=== PATIENT | female | born 1975 | race Caucasian/White ===

== ENCOUNTER 2019-02-06 00:09 | Emergency (ER) | payer BC ==
[~2019-02-06] VITALS: Ht 157.5 cm; Wt 64.4 kg
[2019-02-06] MEDS ORDERED: PANTOPRAZOLE SOD DR 40 MG TAB (00:25)
[2019-02-06] MEDS ORDERED: FOLIC ACID TAB 1MG (00:25)
[2019-02-06] MEDS ORDERED: FLUOXETINE CAP 20MG (00:25)
[2019-02-06] MEDS ORDERED: METHOTREXATE 2.5 MG (00:25)
[2019-02-06] MEDS ORDERED: MESALAMINE 800 MG (00:25)
[2019-02-06] MEDS ORDERED: FOLIC ACID 1 MG TABLET (00:25)
[2019-02-06] MEDS ORDERED: PERMETHRIN 5% (00:25)
[2019-02-06] MEDS ORDERED: LORATADINE (00:25)
--- NOTE | 2019-02-06 01:05 | NUR ---
Pt provided urine sample, sent to lab.
--- NOTE | 2019-02-06 01:12 | NUR ---
Dr. Boone at bedside for MSE accompanied by female chapperone.
--- NOTE | 2019-02-06 01:58 | NUR ---
Patient discharged to home in stable conditon. Written and verbal after care instructions given. Patient verbalizes understanding of instructions.
[2019-02-06 01:59] VITALS: BP 142/89
== END 2019-02-06 02:00 | disposition home or self-care (01) ==
LOC: ER 00:16
DX: Z00.00 Encounter for general adult medical examination without abnormal findings (principal); N89.8 Other specified noninflammatory disorders of vagina; Z79.899 Other long term (current) drug therapy
CPT/HCPCS: 87210; A4663

== ENCOUNTER 2019-08-21 15:55 | Emergency (ER) | payer BC ==
[~2019-08-21] VITALS: Ht 157.5 cm; Wt 64.4 kg
[~2019-08-21 15:55] MED LIST: FLUOXETINE CAP 20MG; FOLIC ACID 1 MG TABLET; FOLIC ACID TAB 1MG; LORATADINE; MESALAMINE 800 MG; METHOTREXATE 2.5 MG; PANTOPRAZOLE SOD DR 40 MG TAB; PERMETHRIN 5%
--- NOTE | 2019-08-21 16:13 | NUR ---
PATIENT WAS MSE BY DR TALAVERA IN ROOM 01B. PATIENT A & O X4.
[2019-08-21 16:46] VITALS: BP 141/86
--- NOTE | 2019-08-21 16:46 | NUR ---
Patient discharged to home in stable conditon. Written and verbal after care instructions given. Patient verbalizes understanding of instructions.
== END 2019-08-21 16:50 | disposition home or self-care (01) ==
LOC: ER 15:56
DX: F41.8 Other specified anxiety disorders (principal); E03.9 Hypothyroidism, unspecified; Z79.899 Other long term (current) drug therapy
CPT/HCPCS: 93005; A4663

== ENCOUNTER 2019-10-15 22:43 | Emergency (ER) | payer BC ==
[~2019-10-15] VITALS: Ht 1597.7 cm; Wt 64.9 kg
[2019-10-15] MEDS ORDERED: LEVO75TA7 PO (22:51)
[2019-10-15 23:29] LABS: *BILIRUBIN,URIN NEGATIVE (NEGATIVE); *CLARITY,URINE CLEAR (CLEAR); *COLOR,URINE YELLOW (YELLOW); *KETONES,URINE TRACE (NEGATIVE); *UROBILINOGEN,URINE 0.2 E.U./dl (NORMAL); LEUKOCYTE ESTERASE ,URINE NEGATIVE (NEGATIVE); NITRITE, URINE NEGATIVE (NEGATIVE); UGLUCOSE NEGATIVE (NEGATIVE)
[2019-10-15 23:32] LABS: *BLOOD, URINE TRACE (NEGATIVE)
[2019-10-15 23:33] LABS: *URINE HCG, QUAL NEGATIVE (NEGATIVE); BACTERIA,URINE NONE SEEN /HPF (NONE SEEN); SQUAMOUS EPITHELIAL CELL,UR FEW /HPF (NONE SEEN); WBC,URINE 0-3 /HPF (0-3)
--- NOTE | 2019-10-15 23:34 | NUR ---
chapperoned md with vaginal exam
--- NOTE | 2019-10-15 23:37 | NUR ---
Patient discharged to home in stable condition. Written and verbal after care instructions given. Patient verbalizes understanding of instructions.
[2019-10-15 23:38] VITALS: BP 136/86
== END 2019-10-15 23:39 | disposition home or self-care (01) ==
LOC: ER 22:43
DX: A60.00 Herpesviral infection of urogenital system, unspecified (principal); E03.9 Hypothyroidism, unspecified; Z79.899 Other long term (current) drug therapy
CPT/HCPCS: 84703; A4663

== ENCOUNTER 2019-12-13 17:30 | Emergency (ER) | payer BC ==
[~2019-12-13] VITALS: Ht 157.5 cm; Wt 65.8 kg
[2019-12-13 18:09] LABS: *BILIRUBIN,URIN NEGATIVE (NEGATIVE); *CLARITY,URINE CLEAR (CLEAR); *COLOR,URINE LIGHT YELLOW (YELLOW); *KETONES,URINE NEGATIVE (NEGATIVE); *UROBILINOGEN,URINE 0.2 E.U./dl (NORMAL); LEUKOCYTE ESTERASE ,URINE NEGATIVE (NEGATIVE); NITRITE, URINE NEGATIVE (NEGATIVE); UGLUCOSE NEGATIVE (NEGATIVE)
[2019-12-13 18:12] LABS: *BLOOD, URINE TRACE (NEGATIVE)
[2019-12-13 18:13] LABS: *URINE HCG, QUAL NEGATIVE (NEGATIVE)
[2019-12-13 18:26] LABS: BACTERIA,URINE NONE SEEN /HPF (NONE SEEN); SQUAMOUS EPITHELIAL CELL,UR FEW /HPF (NONE SEEN); WBC,URINE 0-3 /HPF (0-3)
--- NOTE | 2019-12-13 18:41 | NUR ---
Female skill labor accompanied female patient for (Dr Conroy).
[2019-12-13 18:47] VITALS: BP 125/93
--- NOTE | 2019-12-13 18:48 | NUR ---
Pt left ER prior to having discharge info. Dr Conroy made aware.
== END 2019-12-13 18:49 | disposition home or self-care (01) ==
LOC: ER 17:30
DX: R05 Cough (principal); R30.0 Dysuria; R07.89 Other chest pain; F43.9 Reaction to severe stress, unspecified; E03.9 Hypothyroidism, unspecified; Z79.899 Other long term (current) drug therapy
CPT/HCPCS: 71045; 84703; 93005; A4663

== ENCOUNTER 2022-08-16 12:45 | Emergency (ER) | payer BC ==
[~2022-08-16] VITALS: Ht 157.5 cm; Wt 64.9 kg
[~2022-08-16 12:45] MED LIST changes: +ALBU8HFA4; +ASACOL; +GABAPENTIN; +LEVO75TA7 PO; -LORATADINE; -METHOTREXATE 2.5 MG; +MYLANTA; -PERMETHRIN 5%
[2022-08-16] MEDS ORDERED: PHEN26CR2 RC (16:57)
--- NOTE | 2022-08-16 17:08 | NUR ---
Gave pt RX and d/c instructions, verbalized understanding.
== END 2022-08-16 17:12 | disposition home or self-care (01) ==
LOC: ER 12:48
DX: K62.89 Other specified diseases of anus and rectum (principal); K64.4 Residual hemorrhoidal skin tags; R73.03 Prediabetes; L40.50 Arthropathic psoriasis, unspecified; E03.9 Hypothyroidism, unspecified; Z79.890 Hormone replacement therapy; K52.3 Indeterminate colitis
CPT/HCPCS: A4663